=== PATIENT | male | born 1950 | race Caucasian/White ===

== ENCOUNTER 2021-05-18 16:26 | Inpatient (IN) | payer OTHER ==
[~2021-05-18] VITALS: Ht 180.3 cm; Wt 121.0 kg
[2021-05-18 17:43] LABS: BASOPHILS ABSOLUTE AUTO 0.01 K/mm3 (0.00-0.23); BASOPHILS PERCENT AUTO 0 % (0-2); EOSINOPHILS ABSOLUTE AUTO 0.01 K/mm3 (0.00-0.68); EOSINOPHILS PERCENT AUTO 0 % (0-6); Hematocrit 45.7 % (37.0-53.0); Hemoglobin 16.2 g/dL (13.5-17.5); IMMATURE GRAN ABSOLUTE AUTO 0.06 K/mm3 (0.00-0.10); IMMATURE GRAN PERCENT AUTO 1 % (0-1); LYMPHOCYTES ABSOLUTE AUTO 1.06 K/mm3 (0.84-5.20); LYMPHOCYTES PERCENT AUTO 8 % (21-46); MONOCYTES ABSOLUTE AUTO 0.87 K/mm3 (0.16-1.47); MONOCYTES PERCENT AUTO 7 % (4-13); Mean Corpuscular HGB 29.6 pg (26.0-34.0); Mean Corpuscular HGB Conc 35.4 g/dL (31.5-36.5); Mean Corpuscular Volume 84 fL (80-100); Mean Platelet Volume 10.7 fL (9.1-12.4); NEUTROPHILS ABSOLUTE AUTO 10.64 K/mm3 (1.96-9.15); NEUTROPHILS PERCENT AUTO 84 % (41-73); Platelet Count 265 K/mm3 (150-400); RDW Coefficient Variation 13.2 % (11.7-14.2); RDW Standard Deviation 40.8 fL (35.1-46.3); Red Blood Cell Count 5.47 M/mm3 (4.30-5.90); White Blood Cell Count 12.65 K/mm3 (4.00-11.30)
[2021-05-18 18:07] LABS: Alanine Aminotransfer (ALT/SGP 29 U/L (12-78); Albumin, Blood 3.1 g/dL (3.4-5.0); Albumin/Globulin Ratio 0.8 (0.8-1.8); Alk Phos 66 U/L (50-136); Anion Gap 10 mmol/L (6-16); Aspartate Aminotrans (AST/SGOT 24 U/L (12-37); Blood Urea Nitrogen 36 mg/dL (8-24); Bun/Creatinine Ratio 44.8 (12.0-20.0); CO2, Blood 25 mmol/L (21-32); Calcium, Blood 8.6 mg/dL (8.5-10.1); Chloride, Blood 104 mmol/L (98-108); Globulin, Blood 3.9 g/dL (2.2-4.0); Glomerular Filtration Rate >60 (60-); Glucose, Blood 203 mg/dL (70-99); Magnesium, Blood 2.1 mg/dL (1.6-2.4); Potassium, Blood 3.4 mmol/L (3.5-5.5); Sodium, Blood 139 mmol/L (136-145); Troponin I 0.019 ng/mL (0.000-0.040)
[2021-05-18] MEDS ORDERED: FINA5 PO (18:34)
[2021-05-18] MEDS ORDERED: OMEP20ER PO (18:34)
[2021-05-18] MEDS ORDERED: Aspir 8181 MG PO (18:34)
[2021-05-18] MEDS ORDERED: GABA800 PO (18:35)
[2021-05-18] MEDS ORDERED: METO25 PO (18:35)
[2021-05-18] MEDS ORDERED: GLIP10 PO (18:36)
[2021-05-18] MEDS ORDERED: Lisinopril2.5 MG PO (18:36)
[2021-05-18] MEDS ORDERED: TERA5 PO (18:37)
[2021-05-18] MEDS ORDERED: ATOR40TA PO (18:37)
[2021-05-18] MEDS ORDERED: HUMULIN N100 UNIT/6 SC (18:39)
[2021-05-18 23:42] LABS: Source, Urine Catheter
[2021-05-18 23:51] LABS: Bilirubin, Urine Neg (Neg); Blood, Urine 1+ (Neg); Glucose Qualitative, Urine 4+ (Neg); Ketones, Urine 2+ (Neg); Leukocyte Esterase, Urine Neg (Neg); Nitrite, Urine Neg (Neg); Protein, Urine 2+ (Neg); Specific Gravity, Urine 1.015 (1.003-1.022); Urobilinogen, Urine 2+ (Normal)
[2021-05-18 23:59] LABS: Appearance, Urine Clear (Clear); Color, Urine Yellow (P-Yellow)
[2021-05-19] LABS: Bacteria Not Seen /hpf; Mucus Light (0-Heavy); Red Blood Cells, Urine 0-2 /hpf (0-2); Squamous Epithelial Cells Not Seen /hpf (Few); White Blood Cells, Urine Not Seen /hpf (0-5)
--- NOTE | 2021-05-19 03:02 | NUR ---
SHIFT SUMMARY PT ER ADMIT THIS SHIFT FOR AFIB W RVR, PNA AND CVA. PT CVA WAS APPROX BETWEEN 1-7 DAYS AGO PER MD NOTE AND PT RECEIVED NO MEDICAL INTERVENTION DURING THAT TIME. PT SPEAK IIS CLEAR, NO OBVIOUS MOTOR DEFICITS WITH ASSESSMENT GRASPS ARE STRONG. HOWEVER PT IS VERY CONFUSED, AND HAS SOME GENERALIZED WEAKNESS. PT AFIB ON TELE, RATE IS NOW CONTROLLED IN THE 90'S AFTER RECEVING DIALTIAZEM IN THE ER. PT POTASSIUM IS BEING REPLACED AT THIS TIME. PT SLIGHLY LOW AT 3.4. PT NPO AT THIS TIME PENDING SPEECH EVAL. VITALS ARE STABLE. PT INCONTINENT OF URINE. SKIN IS C/D/I. PLAN IS FOR NEURO CONSULT, ECHO AND SPEECH EVAL. PT PLESANT WITH CARE. ADMISSION COMPLETE. BED IN LOWEST POSITION, CALL LIGHT WITHIN REACH.
[2021-05-19 04:51] LABS: BASOPHILS ABSOLUTE AUTO 0.01 K/mm3 (0.00-0.23); BASOPHILS PERCENT AUTO 0 % (0-2); EOSINOPHILS ABSOLUTE AUTO 0.07 K/mm3 (0.00-0.68); EOSINOPHILS PERCENT AUTO 1 % (0-6); Hematocrit 43.3 % (37.0-53.0); IMMATURE GRAN ABSOLUTE AUTO 0.03 K/mm3 (0.00-0.10); IMMATURE GRAN PERCENT AUTO 0 % (0-1); LYMPHOCYTES ABSOLUTE AUTO 1.25 K/mm3 (0.84-5.20); LYMPHOCYTES PERCENT AUTO 12 % (21-46); MONOCYTES ABSOLUTE AUTO 0.85 K/mm3 (0.16-1.47); MONOCYTES PERCENT AUTO 8 % (4-13); Mean Corpuscular HGB 29.4 pg (26.0-34.0); Mean Corpuscular HGB Conc 34.6 g/dL (31.5-36.5); Mean Corpuscular Volume 85 fL (80-100); NEUTROPHILS ABSOLUTE AUTO 8.21 K/mm3 (1.96-9.15); NEUTROPHILS PERCENT AUTO 79 % (41-73); Platelet Count 239 K/mm3 (150-400); RDW Coefficient Variation 13.2 % (11.7-14.2); RDW Standard Deviation 41.3 fL (35.1-46.3); White Blood Cell Count 10.42 K/mm3 (4.00-11.30)
[2021-05-19 05:22] LABS: Alanine Aminotransfer (ALT/SGP 28 U/L (12-78); Albumin, Blood 2.8 g/dL (3.4-5.0); Albumin/Globulin Ratio 0.8 (0.8-1.8); Alk Phos 60 U/L (50-136); Anion Gap 6 mmol/L (6-16); Aspartate Aminotrans (AST/SGOT 20 U/L (12-37); Bilirubin, Total 0.9 mg/dL (0.1-1.0); Blood Urea Nitrogen 30 mg/dL (8-24); Bun/Creatinine Ratio 40.9 (12.0-20.0); CO2, Blood 28 mmol/L (21-32); Calcium, Blood 8.1 mg/dL (8.5-10.1); Chloride, Blood 108 mmol/L (98-108); Creatinine, Blood 0.73 mg/dL (0.60-1.20); Globulin, Blood 3.6 g/dL (2.2-4.0); Glomerular Filtration Rate >60 (60-); Glucose, Blood 106 mg/dL (70-99); Potassium, Blood 3.6 mmol/L (3.5-5.5); Sodium, Blood 142 mmol/L (136-145); Total Protein, Blood 6.4 g/dL (6.4-8.2)
--- NOTE | 2021-05-19 09:45 | NUR ---
SPOKE WITH DR SMALLS AT 0900. VERBAL ORDER TO HOLD BOTH PLAVIX AND LOVENOX THIS AM UNTIL NEURO HAS BEEN CONSULTED.
--- NOTE | 2021-05-19 15:45 | NUR ---
SEIZURE PT STAFF MEMBER ENTERED PATIENT'S ROOM TO GET READY FOR TRANSPORT TO MEDICAL FLOOR. PATIENT EXPERIENCED A SEIZURE LASTING ABOUT 45 SECONDS. VSS, PATIENT ABLE TO SLOWLY ANSWER QUESTIONS. HE WAS IN BED DURING SEIZURE. NOTIFIED DR. EASTMAN AND DR SMALLS. HEAD CT W/O CONTRAST ORDERED STAT. ALSO 1-2 MG ATIVAN PRN FOR PROCEDURE AND SEIZURE PRECAUTIONS. WAITING FOR IMAGING TRANSPORT AT THIS TIME.
--- NOTE | 2021-05-19 16:11 | NUR ---
2ND SEIZURE PATIENT EXPERIENCED 2ND SEIZURE LASTING ABOUT 20 SECONDS IN BED PRIOR TO LEAVING FOR HEAD CT. WAS ALERT AND ABLE TO SLOWLY ANSWER QUESTIONS AFTER SEIZURE ENDED. OBTAINED ORDER FOR SEIZURE PRECAUTIONS AND IV ATIVAN. WILL ADMIN ATIVAN UPON RETURN FROM IMAGING.
--- NOTE | 2021-05-19 18:46 | NUR ---
SHIFT SUMMARY PATIENT SOMETIMES FORGETFUL, CONFUSED, AND LETHARGIC THROUGHOUT SHIFT. LEFT SIDED WEAKNESS. 2 PERSON ASSIST TO CHAIR. NPO PER SPEECH THERAPY. 2 SEIZURES IN AFTERNOON. NEURO CONSULTED AND ASSESSING PATIENT AT END OF SHIFT. REPEAT HEAD CT SHOWED NO CHANGES SINCE YESTERDAY 05/18/21. STARTED ON IV ATIVAN AND KEPPRA. RETAINING URINE, ZEPEDA PLACED AT END OF SHIFT. BED ALARM ON.
[2021-05-19 18:48] LABS: Source, Urine Clean Catch
[2021-05-19 18:51] LABS: Bilirubin, Urine Neg (Neg); Blood, Urine 2+ (Neg); Color, Urine Yellow (P-Yellow); Glucose Qualitative, Urine 4+ (Neg); Ketones, Urine 2+ (Neg); Leukocyte Esterase, Urine Neg (Neg); Nitrite, Urine Neg (Neg); Protein, Urine 2+ (Neg); Urobilinogen, Urine 2+ (Normal)
[2021-05-19 19:07] LABS: Appearance, Urine Clear (Clear); Bacteria Few /hpf; Squamous Epithelial Cells Not Seen /hpf (Few); White Blood Cells, Urine 0-2 /hpf (0-5)
--- NOTE | 2021-05-19 19:18 | NUR ---
I SPOKE TO DR. OVALLE - CLARIFIED MOST RECENT KEPPRA DOSE AND TIME GIVEN, AND KEPPRA DOSE SCHEDULED FOR TONIGHT AT 2100, RECEIVED VERBAL ORDER TO GIVE THE EVENING KEPPRA DOSE SCHEDULED.
--- NOTE | 2021-05-19 19:20 | NUR ---
MARIA D SIZE 2-3MM, LEFT SIDED WEAKNESS, LEFT HAND STRENGTH MINIMAL DECREASE IN STRENGTH THAN THE RIGHT, AND BLE - LLE WITH MINIMAL DECREASE IN STRENGTH FROM THE RLE.
--- NOTE | 2021-05-19 19:20 | NUR ---
PT IS FIDGETY, DOESN'T ANSWER ANY QUESTIONS ASKED. PT HAS CONFUSED CONVERSATION. PT DOES FOLLOW SOME INSTRUCTIONS GIVEN. PT SITTING IN HIGH SEMI FOWLERS POSITION IN BED, TURNED TELEVISION ON TO ATTEMPT TO DISTRACT THE PAIT. IV TO RFA IN PLACE, INFUSING NS AT 125 HOUR WITHOUT COMPLICATIONS. PAS ON TO BLE. PT IS NPO. ZAID PAUL SITTING OUTSIDE OF ROOM.
--- NOTE | 2021-05-19 23:35 | NUR ---
UPON ENTERING THE ROOM FOR THE CBG CHECK - PT STATES ARE "YOU READY FOR THE CONSTITUTION PARTY." PT IS ALERT TO PERSON, AND HIS BIRTHDATE AT THIS TIME. PT ASKED FOR THE RESULT OF THE CBG ALSO - PROVIDED. PT ALSO REPORTED ARE "YOU GOING TO TAKE MY BLOOD AGAIN." AT CHANGE OF SHIFT, PT WASN'T A&O - SEE PREVIOUS NOTE.
--- NOTE | 2021-05-19 23:39 | NUR ---
PRIOR TO TAKING PT'S CBG - PT STATES ARE "YOU HEAR TO TAKE MY BLOOD AGAIN." PT ABLE TO STATE HIS NAME AND BIRTHDAY, AND ASKED FOR THE RESULTS OF THE CBG - PROVIDED. PT ALSO ASKED "ARE YOU READY FOR THE GREEN PARTY" UPON ENTERING ROOM. PT WASN'T A&O AT CHANGE OF SHIFT - SEE NN FROM BEGINNING OF THIS SHIFT.
--- NOTE | 2021-05-19 23:54 | NUR ---
NEURO CHECKS REMAIN THE SAME, MINIMAL DECREASED STRENGTH ON THE LEFT LE/UE, MARIA D.
--- NOTE | 2021-05-20 03:32 | NUR ---
MARIA D - 2-3MM, NO CHANGE TO LEFT UE & LLE - MINIMAL DECREASE IN STRENGTH FROM RIGHT UE/LE.
[2021-05-20 03:54] LABS: BASOPHILS ABSOLUTE AUTO 0.02 K/mm3 (0.00-0.23); BASOPHILS PERCENT AUTO 0 % (0-2); EOSINOPHILS ABSOLUTE AUTO 0.27 K/mm3 (0.00-0.68); EOSINOPHILS PERCENT AUTO 2 % (0-6); Hemoglobin 14.9 g/dL (13.5-17.5); IMMATURE GRAN ABSOLUTE AUTO 0.04 K/mm3 (0.00-0.10); IMMATURE GRAN PERCENT AUTO 0 % (0-1); LYMPHOCYTES ABSOLUTE AUTO 1.21 K/mm3 (0.84-5.20); LYMPHOCYTES PERCENT AUTO 10 % (21-46); MONOCYTES ABSOLUTE AUTO 0.85 K/mm3 (0.16-1.47); MONOCYTES PERCENT AUTO 7 % (4-13); Mean Corpuscular HGB 30.3 pg (26.0-34.0); Mean Corpuscular HGB Conc 34.7 g/dL (31.5-36.5); Mean Corpuscular Volume 87 fL (80-100); Mean Platelet Volume 9.9 fL (9.1-12.4); NEUTROPHILS ABSOLUTE AUTO 10.01 K/mm3 (1.96-9.15); NEUTROPHILS PERCENT AUTO 81 % (41-73); Platelet Count 241 K/mm3 (150-400); RDW Coefficient Variation 13.5 % (11.7-14.2); RDW Standard Deviation 42.8 fL (35.1-46.3); Red Blood Cell Count 4.92 M/mm3 (4.30-5.90)
[2021-05-20 04:12] LABS: Alanine Aminotransfer (ALT/SGP 29 U/L (12-78); Albumin, Blood 2.9 g/dL (3.4-5.0); Albumin/Globulin Ratio 0.8 (0.8-1.8); Alk Phos 62 U/L (50-136); Anion Gap 11 mmol/L (6-16); Aspartate Aminotrans (AST/SGOT 18 U/L (12-37); Bilirubin, Total 1.2 mg/dL (0.1-1.0); Blood Urea Nitrogen 22 mg/dL (8-24); Bun/Creatinine Ratio 28.4 (12.0-20.0); CO2, Blood 22 mmol/L (21-32); Calcium, Blood 8.2 mg/dL (8.5-10.1); Chloride, Blood 109 mmol/L (98-108); Creatinine, Blood 0.78 mg/dL (0.60-1.20); Globulin, Blood 3.6 g/dL (2.2-4.0); Glomerular Filtration Rate >60 (60-); Glucose, Blood 184 mg/dL (70-99); Potassium, Blood 3.3 mmol/L (3.5-5.5); Sodium, Blood 142 mmol/L (136-145); Total Protein, Blood 6.5 g/dL (6.4-8.2)
--- NOTE | 2021-05-20 05:58 | NUR ---
SHIFT SUMMARY - PT IS MORE CONFUSED AGAIN THIS MORNING. PT HAS BEEN FOCUSING ON FISHING OFF/ON THROUGHOUT THE NIGHT. PT ISN'T ALERT TO SELF/BIRTHDATE THIS AM. PT IS ABLE TO FOLLOW SOME DIRECTIONS THIS AM. NO CHANGE TO NEURO CHECKS THROUGHOUT THE NIGHT. STAFF HAVE BEEN SITTING OUTSIDE OF PT'S ROOM THROUGHOUT MOST OF THE NOC. CALL LIGHT WITHIN REACH. BED ALARM ON. BED IN LOW POSITION. SEIZURE PADS IN PLACE.
[2021-05-20 08:20] LABS: CHOL/HDL RATIO 3.8; Cholesterol 123 mg/dL (50-200); HDL Cholesterol 32 mg/dL (>39); LDL/HDL RATIO 2.1; Low Density Lipoprotein Chol 67 mg/dL (0-110); Triglycerides 121 mg/dL (30-160); Very Low Density Lipoprot Chol 24 mg/dL (6-32)
--- NOTE | 2021-05-20 10:27 | NUR ---
Pt is alert, oriented to person, hospital (at first he thought it was the [place] hospital, but after correction he remembered an hour later that he is at [facility]), and also knows that he had a stroke. He is able to carry on conversation, still has left sided droop and left pupil is sluggish to react to light. He follows directions poorly, becomes agitated easily and has little to no insight into his limitations and has poor reasoning. Left sided neglect, impaired depth perception, and left sided weakness noted. [facility] done this am, seen also by resident and hospitalist. Pt is sitting up in chair, eating ice cream. STated that he neeed to use the bathroom. Was able to bear weight and use walker with assistance to stand and sit on the commode. He was confused about it being a toilet, and became agitated when we tried to direct him to use it. He did have a BM. Attempting to pull of off his IV, and attempts to distract and redirect were unsuccessful. Bilateral soft wrist restraints applied to prevent dislodgement of his IV by the pt due to his confusion and inability to be redirected.
--- NOTE | 2021-05-20 11:19 | NUR ---
The pt will be transferred to room 219. Report was called to Kacy Wagner at this time.
--- NOTE | 2021-05-20 18:10 | NUR ---
TRANSFER: REPORT RECEIVED FROM RESERVATIONS AGENTMARINA. PT TO UNIT AT ABOUT 1130. UPON ASSESSMENT PT IS SITTING UP IN RECLINER, ALERT. ORIENTED TO SELF AND TIME ONLY. DIFFICULT FOR PT TO FOLLOW COMMANDS AND DOESN'T ALWAYS RESPOND APPROPRIATLY. BILAT SOFT WRIST RESTRAINTS ON AND RESTRAINT ASSESSMENT COMPLETED. AIR GAURD OFFICER IN ROOM TO MAINTAIN PT SAFETY, CHAIR ALARM ON. WILL CTM.
--- NOTE | 2021-05-20 18:16 | NUR ---
SUMMARY: NO ACUTE CHANGE TODAY. VSS, TELE AFIB, HR 103. ZEPEDA PATENT AND DRAINING. PT HAS HAD X3 SMALL LIQ BM'S TODAY. ATTENDS CHANGED PRN. PT WORKED WITH THERAPY, BUT WAS NOT ABLE TO AMBULATE. PT HAS DIFFICULTLY FOLLOWING COMMANDS. NEEDED 3 ASSIST WITH GAIT BELT AND WALKER TO TRANSFER TO BED. PT SAT UP FOR MEALS AND HAD ASSISTANCE. MINIMAL PO INTAKE, MEDS CRUSHED IN APPLESAUCE. PT CONTINUES TO BE CONFUSED, ORIENTED TO SELF AND TIME ONLY. BED ALARM SET AND FREQUENT ROUNDING. PT GIVEN AN UPDATE. WILL CTM AND REPORT TO NOC RN.
--- NOTE | 2021-05-20 21:30 | NUR ---
PT TOOK KEPPRA ORDERED, THEN REFUSED ALL OTHER HS MEDS. ATTEMPTED TO GIVE MEDS CRUSHED IN APPLESAUCE, PT BEGAN TO SPIT MEDS OUT. ATTEMPTED TO REDIRECT PT, BUT PT CONT TO SPIT OUT ALL PO OFFERINGS.
[2021-05-21 04:48] LABS: BASOPHILS ABSOLUTE AUTO 0.02 K/mm3 (0.00-0.23); BASOPHILS PERCENT AUTO 0 % (0-2); EOSINOPHILS ABSOLUTE AUTO 0.46 K/mm3 (0.00-0.68); EOSINOPHILS PERCENT AUTO 4 % (0-6); IMMATURE GRAN ABSOLUTE AUTO 0.04 K/mm3 (0.00-0.10); IMMATURE GRAN PERCENT AUTO 0 % (0-1); LYMPHOCYTES ABSOLUTE AUTO 0.89 K/mm3 (0.84-5.20); LYMPHOCYTES PERCENT AUTO 8 % (21-46); MONOCYTES ABSOLUTE AUTO 0.71 K/mm3 (0.16-1.47); MONOCYTES PERCENT AUTO 6 % (4-13); Mean Corpuscular HGB 29.5 pg (26.0-34.0); Mean Corpuscular HGB Conc 34.2 g/dL (31.5-36.5); Mean Corpuscular Volume 86 fL (80-100); NEUTROPHILS ABSOLUTE AUTO 9.79 K/mm3 (1.96-9.15); NEUTROPHILS PERCENT AUTO 82 % (41-73); Platelet Count 218 K/mm3 (150-400); RDW Coefficient Variation 13.6 % (11.7-14.2); RDW Standard Deviation 42.6 fL (35.1-46.3); White Blood Cell Count 11.91 K/mm3 (4.00-11.30)
--- NOTE | 2021-05-21 05:03 | NUR ---
PT VSS T/O NIGHT. PT ALERT, REMAINS CONFUSED, ORIENTED TO SELF ONLY. PT NEEDING FREQ REORIENTING, DOES BECOME AGITATED AT TIMES. PT ASSISTED W/THICKENED PO FLUIDS, WILL ASK FOR SNACKS AND DRINKS BUT ONLY TAKES IN MINIMAL AMTS. ZEPEDA PATANT DRNG DARK YELLOW URINE. SOFT WRIST RESTRAINTS IN PLACE. PT REPOSITIONED GENARO DURING NIGHT, HE DOES SHIFT SELF IN BED OFTEN, BUT NEEDS HELP MOVING LLE. GUARDSMEN IN ROOM FOR SUPPORT AND DISTRACTION, PT APPEARS TO RESPOND WELL. BED ALARM IN PLACE.
[2021-05-21 05:09] LABS: Alanine Aminotransfer (ALT/SGP 28 U/L (12-78); Albumin/Globulin Ratio 0.9 (0.8-1.8); Alk Phos 63 U/L (50-136); Anion Gap 12 mmol/L (6-16); Aspartate Aminotrans (AST/SGOT 16 U/L (12-37); Blood Urea Nitrogen 18 mg/dL (8-24); Bun/Creatinine Ratio 24.7 (12.0-20.0); CO2, Blood 22 mmol/L (21-32); Calcium, Blood 8.3 mg/dL (8.5-10.1); Chloride, Blood 110 mmol/L (98-108); Creatinine, Blood 0.73 mg/dL (0.60-1.20); Globulin, Blood 3.4 g/dL (2.2-4.0); Glomerular Filtration Rate >60 (60-); Glucose, Blood 213 mg/dL (70-99); Potassium, Blood 3.5 mmol/L (3.5-5.5); Sodium, Blood 144 mmol/L (136-145); Total Protein, Blood 6.4 g/dL (6.4-8.2)
--- NOTE | 2021-05-21 18:12 | NUR ---
SUMMARY: PT SEEMS MORE CONFUSED TONIGHT, AND HAS BEEN SEEING BUGS AND DEER IN HIS ROOM, PT ALSO HAVING CONVERSATIONS WITH PEOPLE THAT ARENT IN THE ROOM. PT HAS HAS MINIMAL PO INTAKE, REFUSING SOME MEDICATION AND TAKING ONLY BITES OF MEALS. DR. CORRIGAN NOTIFIED. SEE NEW ORDERS. NEW IV STARTED TONIGHT. CONTINUED WRIST RESTRAITS, PT ORIENTED TO SELF ONLY AND CONSTANTING ATTEMPTING TO PULL AT LINES. WILL REPORT TO NOC RN.
[2021-05-21 21:53] LABS: Source, Urine Catheter
[2021-05-21 22:04] LABS: Bilirubin, Urine Neg (Neg); Blood, Urine 5+ (Neg); Glucose Qualitative, Urine 4+ (Neg); Ketones, Urine 4+ (Neg); Leukocyte Esterase, Urine Neg (Neg); Nitrite, Urine Neg (Neg); Protein, Urine 2+ (Neg); Specific Gravity, Urine 1.025 (1.003-1.022); Urobilinogen, Urine NORM (Normal)
[2021-05-21 22:08] LABS: Appearance, Urine Clear (Clear); Color, Urine Yellow (P-Yellow)
[2021-05-21 22:11] LABS: Bacteria Mod /hpf; Red Blood Cells, Urine 50-100 /hpf (0-2); Squamous Epithelial Cells Not Seen /hpf (Few); White Blood Cells, Urine 0-2 /hpf (0-5); Yeast/Fungi Urine Mod /hpf
--- NOTE | 2021-05-22 04:30 | NUR ---
HR: HR DROPPED TO 48 PER TELE MONITOR. PT SLEEPING, AWOKE EASILY. HR RETURNED BACK UP TO HIGH 60'S WHEN PT AWAKE.
--- NOTE | 2021-05-22 06:24 | NUR ---
PT REMAINS CONFUSED AND DIFFICULT TO REDIRECT. PT CONT TO PULL ON RESTRAINTS, AND PULLS ON LINES WHEN RESTRAINTS REMOVED FOR ROM AND REPOSITIONING. HR TRENDING 50'S WHILE SLEEPING, DID DROP TO 48 BRIEFLY WHEN SLEEPING. PT ASSISTED W/THICKENED PO FLUIDS, GENARO WELL.
[2021-05-22 08:19] LABS: BASOPHILS ABSOLUTE AUTO 0.02 K/mm3 (0.00-0.23); BASOPHILS PERCENT AUTO 0 % (0-2); EOSINOPHILS ABSOLUTE AUTO 0.56 K/mm3 (0.00-0.68); EOSINOPHILS PERCENT AUTO 6 % (0-6); IMMATURE GRAN ABSOLUTE AUTO 0.03 K/mm3 (0.00-0.10); IMMATURE GRAN PERCENT AUTO 0 % (0-1); LYMPHOCYTES ABSOLUTE AUTO 1.26 K/mm3 (0.84-5.20); LYMPHOCYTES PERCENT AUTO 14 % (21-46); MONOCYTES ABSOLUTE AUTO 0.63 K/mm3 (0.16-1.47); MONOCYTES PERCENT AUTO 7 % (4-13); Mean Corpuscular HGB 29.9 pg (26.0-34.0); Mean Corpuscular HGB Conc 34.3 g/dL (31.5-36.5); Mean Corpuscular Volume 87 fL (80-100); Mean Platelet Volume 10.3 fL (9.1-12.4); NEUTROPHILS ABSOLUTE AUTO 6.85 K/mm3 (1.96-9.15); NEUTROPHILS PERCENT AUTO 73 % (41-73); Platelet Count 193 K/mm3 (150-400); RDW Coefficient Variation 13.7 % (11.7-14.2); RDW Standard Deviation 43.8 fL (35.1-46.3); Red Blood Cell Count 4.01 M/mm3 (4.30-5.90); White Blood Cell Count 9.35 K/mm3 (4.00-11.30)
[2021-05-22 08:42] LABS: Alanine Aminotransfer (ALT/SGP 26 U/L (12-78); Albumin, Blood 2.8 g/dL (3.4-5.0); Albumin/Globulin Ratio 0.9 (0.8-1.8); Alk Phos 56 U/L (50-136); Anion Gap 8 mmol/L (6-16); Aspartate Aminotrans (AST/SGOT 19 U/L (12-37); Bilirubin, Total 0.7 mg/dL (0.1-1.0); Blood Urea Nitrogen 16 mg/dL (8-24); Bun/Creatinine Ratio 21.4 (12.0-20.0); CO2, Blood 23 mmol/L (21-32); Chloride, Blood 114 mmol/L (98-108); Creatinine, Blood 0.75 mg/dL (0.60-1.20); Globulin, Blood 3.1 g/dL (2.2-4.0); Glomerular Filtration Rate >60 (60-); Glucose, Blood 187 mg/dL (70-99); Potassium, Blood 3.9 mmol/L (3.5-5.5); Sodium, Blood 145 mmol/L (136-145); Total Protein, Blood 5.9 g/dL (6.4-8.2)
--- NOTE | 2021-05-22 17:36 | NUR ---
SHIFT SUMMARY PT HAS BEEN CONFUSED T/O DAY BUT DID HAVE SOME TIMES OF CLARITY & OVERALL IMPROVEMENT. THIS AM THOUGHT HE WAS IN A ORTHODOX & THIS AFTERNOON HAS RECOGNIZED HE IS IN A HOSPITAL. HAS BEEN UP IN CHAIR & AMBULATED TWICE TO BATHROOM.
--- NOTE | 2021-05-22 18:20 | NUR ---
AFIB PER RISK MANAGER, PT IS NOW IN A-FIB. AFTER REVIEWING THIER MONITORS, UNABLE TO SAY WHEN PT CONVERTED DURING DAY SHIFT.
--- NOTE | 2021-05-23 04:03 | NUR ---
SHIFT SUMMARY NO ACUTE CHANGES THIS SHIFT. NEURO STATUS REMAINS UNCHANGED. PT ORIENTED TO SELF AND FOLLOWING COMMANDS. INTERMITTENTLY CONFUSED. CONTINUES TO HAVE SLURRED SPEECH. HAS RESTED WELL T/O NIGHT. ZEPEDA INTACT. TELE IN PLACE AND REMAINS IN AFIB WITH SOME TACHYCARDIA NOTED AT TIMES. BED ALARM IN PLACE FOR SAFETY. CALL LIGHT WITHIN REACH.
[2021-05-23 05:04] LABS: BASOPHILS ABSOLUTE AUTO 0.02 K/mm3 (0.00-0.23); BASOPHILS PERCENT AUTO 0 % (0-2); EOSINOPHILS ABSOLUTE AUTO 0.41 K/mm3 (0.00-0.68); EOSINOPHILS PERCENT AUTO 5 % (0-6); Hematocrit 37.6 % (37.0-53.0); Hemoglobin 13.1 g/dL (13.5-17.5); IMMATURE GRAN ABSOLUTE AUTO 0.03 K/mm3 (0.00-0.10); IMMATURE GRAN PERCENT AUTO 0 % (0-1); LYMPHOCYTES ABSOLUTE AUTO 1.06 K/mm3 (0.84-5.20); LYMPHOCYTES PERCENT AUTO 13 % (21-46); MONOCYTES ABSOLUTE AUTO 0.55 K/mm3 (0.16-1.47); MONOCYTES PERCENT AUTO 7 % (4-13); Mean Corpuscular HGB 29.5 pg (26.0-34.0); Mean Corpuscular HGB Conc 34.8 g/dL (31.5-36.5); Mean Corpuscular Volume 85 fL (80-100); Mean Platelet Volume 10.3 fL (9.1-12.4); NEUTROPHILS ABSOLUTE AUTO 5.84 K/mm3 (1.96-9.15); NEUTROPHILS PERCENT AUTO 74 % (41-73); Platelet Count 210 K/mm3 (150-400); RDW Coefficient Variation 13.4 % (11.7-14.2); RDW Standard Deviation 41.9 fL (35.1-46.3); Red Blood Cell Count 4.44 M/mm3 (4.30-5.90); White Blood Cell Count 7.91 K/mm3 (4.00-11.30)
[2021-05-23 05:39] LABS: Alanine Aminotransfer (ALT/SGP 27 U/L (12-78); Albumin, Blood 2.7 g/dL (3.4-5.0); Albumin/Globulin Ratio 0.8 (0.8-1.8); Alk Phos 62 U/L (50-136); Anion Gap 10 mmol/L (6-16); Aspartate Aminotrans (AST/SGOT 15 U/L (12-37); Bilirubin, Total 0.6 mg/dL (0.1-1.0); Blood Urea Nitrogen 13 mg/dL (8-24); Bun/Creatinine Ratio 18.5 (12.0-20.0); CO2, Blood 23 mmol/L (21-32); Calcium, Blood 8.3 mg/dL (8.5-10.1); Chloride, Blood 108 mmol/L (98-108); Globulin, Blood 3.4 g/dL (2.2-4.0); Glomerular Filtration Rate >60 (60-); Glucose, Blood 204 mg/dL (70-99); Potassium, Blood 3.2 mmol/L (3.5-5.5); Sodium, Blood 141 mmol/L (136-145); Total Protein, Blood 6.1 g/dL (6.4-8.2)
--- NOTE | 2021-05-23 14:00 | NUR ---
PT TO IMAGING VIA [facility] FOR SWALLOW STUDY
--- NOTE | 2021-05-23 18:27 | NUR ---
SHIFT SUMMARY PT HAS BEEN CONFUSED MOST OF SHIFT, BUT PLEASANT. ORIENTED TO SELF T/O SHIFT & PLACE ON/OFF. FOLLOWS COMMANDS @ X's, BUT OTHER TIMES STARES BLANKLY. UP TO CHAIR THIS EVENING. LESS INTERESTED IN PO INTAKE TODAY BUT TAKING SOME SIPS FROM SPOON.
--- NOTE | 2021-05-23 20:26 | NUR ---
UPDATED PT'S ON TREATMENT PLAN.
--- NOTE | 2021-05-24 04:14 | NUR ---
SHIFT SUMMARY PT HAS RESTED WELL T/O NIGHT. NEURO STATUS REMAINS UNCHANGED. PT REMAINS PLEASANTLY CONFUSED, BUT COOPERATIVE. ENCOURAGING PO INTAKE PER SPEECH THERAPY RECOMMENDATIONS. ZEPEDA PATENT AND DRAINING. CHANGING ATTENDS PRN. CALL LIGHT WITHIN REACH. BED ALARM IN PLACE FOR SAFETY.
[2021-05-24 04:51] LABS: Anion Gap 7 mmol/L (6-16); Blood Urea Nitrogen 11 mg/dL (8-24); Bun/Creatinine Ratio 16.3 (12.0-20.0); CO2, Blood 26 mmol/L (21-32); Calcium, Blood 8.3 mg/dL (8.5-10.1); Chloride, Blood 109 mmol/L (98-108); Creatinine, Blood 0.67 mg/dL (0.60-1.20); Glomerular Filtration Rate >60 (60-); Glucose, Blood 218 mg/dL (70-99); Potassium, Blood 3.7 mmol/L (3.5-5.5); Sodium, Blood 142 mmol/L (136-145)
--- NOTE | 2021-05-24 16:52 | NUR ---
SHIFT SUMMARY PT HAS BEEN A&O X3 T/O SHIFT. PT HAS BEEN IN PLEASENT, PLAYFUL MOOD T/O SHIFT. PT WORKED W/ PT AND OT. PT TRANSFERED FROM BEDSIDE COMODE TO BED 1 PERSON STANDBY ASSIST W/ GAITBELT AND FWW. PT ABLE TO RECALL HOME PHONE NUMBER AND SPOKE W/ ON THE PHONE. CALLED AND WANTED D/C UPDATE, MESSAGE LEFT W/ ISRAEL OJEDA. CALL LIGHT IS W/IN REACH. VSS. BED ALARM ON.
--- NOTE | 2021-05-25 15:24 | NUR ---
Palliative care consult: Met with Guanaco briefly this afternoon. He was asleep but awakens easily to voice. He briefly opened his eyes but kept them closed for most of the time. He states he is feeling better. He has no complaints. Reviewed with him that the plan is for [facility]. He appears comfortable and in no distress at this time. Chart notes reviewed. CM recently spoke with his to update her on the plan for rehab. PC will continue to follow.
--- NOTE | 2021-05-25 17:18 | NUR ---
SUMMARY: PT ALERT, ORIENTED TO SELF, TIME, SOMETIMES SITUATION AND PLACE. PT MORE APPROPRIATE AND FOLLOWS DIRECTIONS. ABLE TO WORK WITH PT/OT, UP IN CHAIR FOR MEALS. ZEPEDA CATH DC'D AT 1630 AND ATTENDS PLACED, AWAITING VOID. BED ALARM ON FOR SAFETY, WILL CTM AND REPORT TO NOC RN.
--- NOTE | 2021-05-26 07:32 | NUR ---
SUMMARY PT WITH RETENTION AFTER CATH REMOVED YESTERDAY AND I/O CATH WAS PERFOMED. NO OTHER ACUTE CHANGES. PT CONT OCCASIONALLY INAPPROPRIATE TO SITUATION AND IMPULSIVE.TOSSES LEGS TO EDGE OF BED WHICH SET OFF BED ALARM AND PT DOES NOT CALL.
[2021-05-26 10:44] LABS: Anion Gap 6 mmol/L (6-16); Blood Urea Nitrogen 9 mg/dL (8-24); Bun/Creatinine Ratio 11.3 (12.0-20.0); CO2, Blood 30 mmol/L (21-32); Calcium, Blood 8.6 mg/dL (8.5-10.1); Chloride, Blood 102 mmol/L (98-108); Glomerular Filtration Rate >60 (60-); Glucose, Blood 390 mg/dL (70-99); Potassium, Blood 3.7 mmol/L (3.5-5.5); Sodium, Blood 138 mmol/L (136-145)
[2021-05-26 11:49] LABS: SARS-Cov-2 (COVID-19) PCR, MMC NEGATIVE (NEGATIVE)
--- NOTE | 2021-05-26 11:54 | NUR ---
CBG [address] SMALLS NOTIFIED. SEE NEW ORDERS. PLAN TO GIVE 10 UNITS INSULIN BEFORE LUNCH. WILL CTM.
--- NOTE | 2021-05-26 14:06 | NUR ---
DISCHARGE: TRANSPORT HERE FOR PT. LONA HADDAD, LOCOMOTIVE FIRER REPORTS [facility], NO NEED FOR PACKET UPON DC. IV DC'D WNL. PT LEFT UNIT VIA WHEELCHAIR WITH TRANSPORT AT ABOUT 1400 AND REPORT CALLED TO OLIVIA CERVANTES AT [facility] AT ABOUT 1410.
--- NOTE | 2021-05-26 14:36 | NUR ---
PT GIVEN UPDATE ON STATUS AND TRANSFER
== END 2021-05-26 14:45 | disposition short-term general hospital (02) | DRG 64 ==
LOC: ER 16:26 → ERHOLD 20:50 → PCU 20:50 → SURS 20:50 → PCU 23:45 → MEDS 05-19 15:33 → PCU 05-19 15:41 → SURS 05-20 11:36
PROVIDERS: Family Medicine; Internal Medicine; Physician Assistant; ADMIT Hospitalist
DX: I63.89 Other cerebral infarction (principal); J69.0 Pneumonitis due to inhalation of food and vomit; G92 Toxic encephalopathy; G93.6 Cerebral edema; I48.20 Chronic atrial fibrillation, unspecified; G81.94 Hemiplegia, unspecified affecting left nondominant side; G40.409 Other generalized epilepsy and epileptic syndromes, not intractable, without status epilepticus; R29.810 Facial weakness; H53.462 Homonymous bilateral field defects, left side; Z66 Do not resuscitate; Z20.822 Contact with and (suspected) exposure to COVID-19; R47.1 Dysarthria and anarthria; E66.9 Obesity, unspecified; R47.81 Slurred speech; E87.6 Hypokalemia; E10.9 Type 1 diabetes mellitus without complications; N40.0 Benign prostatic hyperplasia without lower urinary tract symptoms; I10 Essential (primary) hypertension; K21.9 Gastro-esophageal reflux disease without esophagitis; Z79.01 Long term (current) use of anticoagulants; Z86.718 Personal history of other venous thrombosis and embolism; Z79.82 Long term (current) use of aspirin; Z79.899 Other long term (current) drug therapy; Z79.4 Long term (current) use of insulin; Z87.891 Personal history of nicotine dependence; Z78.1 Physical restraint status; Z68.35 Body mass index [BMI] 35.0-35.9, adult
CPT/HCPCS: 36415; 70450; 70470; 70496; 70498; 71045; 74230; 80048; 80053; 80061; 81001; 82947; 83036; 83605; 83690; 83735; 84443; 84484; 85025; 92526; 92610; 92611; 93005; 93010; 93306; 96365; 96367; 96375; 97110; 97112; 97116; 97162; 97166; 97530; 97535; 99285-25; A9270; J0456; J0696; J1953; J2060; J3480; J7030; J7050; J7120; Q9967; U0004

== ENCOUNTER 2021-07-05 19:07 | Inpatient (IN) | payer OTHER ==
[~2021-07-05] VITALS: Ht 180.3 cm; Wt 104.1 kg
[~2021-07-05 19:07] MED LIST: ATOR40TA PO; Aspir 8181 MG PO; FINA5 PO; GABA800 PO; GLIP10 PO; HUMULIN N100 UNIT/6 SC; Lisinopril2.5 MG PO; METO25 PO; OMEP20ER PO; TERA5 PO
[2021-07-05 20:16] LABS: BASOPHILS ABSOLUTE AUTO 0.01 K/mm3 (0.00-0.23); BASOPHILS PERCENT AUTO 0 % (0-2); EOSINOPHILS PERCENT AUTO 2 % (0-6); Hematocrit 42.2 % (37.0-53.0); Hemoglobin 14.7 g/dL (13.5-17.5); IMMATURE GRAN ABSOLUTE AUTO 0.02 K/mm3 (0.00-0.10); IMMATURE GRAN PERCENT AUTO 0 % (0-1); LYMPHOCYTES ABSOLUTE AUTO 0.78 K/mm3 (0.84-5.20); LYMPHOCYTES PERCENT AUTO 14 % (21-46); MONOCYTES ABSOLUTE AUTO 0.31 K/mm3 (0.16-1.47); MONOCYTES PERCENT AUTO 6 % (4-13); Mean Corpuscular HGB 30.4 pg (26.0-34.0); Mean Corpuscular HGB Conc 34.8 g/dL (31.5-36.5); Mean Corpuscular Volume 87 fL (80-100); Mean Platelet Volume 10.2 fL (9.1-12.4); NEUTROPHILS ABSOLUTE AUTO 4.22 K/mm3 (1.96-9.15); NEUTROPHILS PERCENT AUTO 78 % (41-73); Platelet Count 243 K/mm3 (150-400); RDW Coefficient Variation 15.7 % (11.7-14.2); RDW Standard Deviation 49.9 fL (35.1-46.3); Red Blood Cell Count 4.83 M/mm3 (4.30-5.90); White Blood Cell Count 5.44 K/mm3 (4.00-11.30)
[2021-07-05 20:29] LABS: Anion Gap 6 mmol/L (6-16); Blood Urea Nitrogen 10 mg/dL (8-24); Bun/Creatinine Ratio 13.1 (12.0-20.0); CO2, Blood 28 mmol/L (21-32); Calcium, Blood 9.4 mg/dL (8.5-10.1); Chloride, Blood 103 mmol/L (98-108); Creatinine, Blood 0.77 mg/dL (0.60-1.20); Glomerular Filtration Rate >60 (60-); Glucose, Blood 124 mg/dL (70-99); Potassium, Blood 4.2 mmol/L (3.5-5.5); Sodium, Blood 137 mmol/L (136-145)
[2021-07-05 21:58] LABS: International Normalized Ratio 1.09; Prothrombin Time Results 11.4 Sec (9.7-11.5)
[2021-07-06] MEDS ORDERED: ACETAMINOPHEN500 M2 PO (00:28)
[2021-07-06] MEDS ORDERED: ATORVASTATIN CA80 M1 PO (00:29)
[2021-07-06] MEDS ORDERED: GLUCOSE PO (00:30)
[2021-07-06] MEDS ORDERED: Cardura Xl8 MG PO (00:32)
[2021-07-06] MEDS ORDERED: JARDIANCE10 MG PO (00:33)
[2021-07-06] MEDS ORDERED: FURO20 PO (00:34)
[2021-07-06] MEDS ORDERED: GABA400 PO (00:35)
[2021-07-06] MEDS ORDERED: GLUCAGEN1 MG/1 M1 IM (00:36)
[2021-07-06] MEDS ORDERED: BASAGLAR K100 UNIT/3 SC (00:37)
[2021-07-06] MEDS ORDERED: Keppra PO (00:39)
[2021-07-06] MEDS ORDERED: LISI5 PO (00:40)
[2021-07-06] MEDS ORDERED: LORAZEPAM2 MG/1 M1 IV (00:41)
[2021-07-06] MEDS ORDERED: [UNRECOGNIZED DRUG - OTHER] PO (00:42)
[2021-07-06] MEDS ORDERED: OXAYDO5 M1 PO (00:44)
[2021-07-06] MEDS ORDERED: Miralax PO (00:45)
[2021-07-06] MEDS ORDERED: K-Dur20 MEQ PO (00:46)
[2021-07-06] MEDS ORDERED: SENN187 PO (00:47)
[2021-07-06] MEDS ORDERED: SERT25 PO (00:48)
[2021-07-06] MEDS ORDERED: Vitamin D PO (00:50)
[2021-07-06 01:59] LABS: SARS-Cov-2 (COVID-19) PCR, MMC NEGATIVE (NEGATIVE)
[2021-07-06 04:52] LABS: Hematocrit 41.9 % (37.0-53.0); Hemoglobin 14.2 g/dL (13.5-17.5); Mean Corpuscular HGB Conc 33.9 g/dL (31.5-36.5); Mean Corpuscular Volume 89 fL (80-100); Mean Platelet Volume 9.8 fL (9.1-12.4); Platelet Count 224 K/mm3 (150-400); RDW Coefficient Variation 15.8 % (11.7-14.2); RDW Standard Deviation 51.9 fL (35.1-46.3); Red Blood Cell Count 4.73 M/mm3 (4.30-5.90)
[2021-07-06 05:14] LABS: Anion Gap 10 mmol/L (6-16); Blood Urea Nitrogen 10 mg/dL (8-24); Bun/Creatinine Ratio 11.4 (12.0-20.0); CO2, Blood 27 mmol/L (21-32); Calcium, Blood 9.3 mg/dL (8.5-10.1); Chloride, Blood 103 mmol/L (98-108); Creatinine, Blood 0.88 mg/dL (0.60-1.20); Glomerular Filtration Rate >60 (60-); Glucose, Blood 107 mg/dL (70-99); Potassium, Blood 4.5 mmol/L (3.5-5.5); Sodium, Blood 140 mmol/L (136-145)
[2021-07-07 05:16] LABS: BASOPHILS PERCENT AUTO 0 % (0-2); EOSINOPHILS PERCENT AUTO 0 % (0-6); Hematocrit 38.8 % (37.0-53.0); Hemoglobin 12.9 g/dL (13.5-17.5); IMMATURE GRAN ABSOLUTE AUTO 0.02 K/mm3 (0.00-0.10); IMMATURE GRAN PERCENT AUTO 0 % (0-1); LYMPHOCYTES ABSOLUTE AUTO 0.43 K/mm3 (0.84-5.20); LYMPHOCYTES PERCENT AUTO 7 % (21-46); MONOCYTES ABSOLUTE AUTO 0.24 K/mm3 (0.16-1.47); MONOCYTES PERCENT AUTO 4 % (4-13); Mean Corpuscular HGB 29.8 pg (26.0-34.0); Mean Corpuscular HGB Conc 33.2 g/dL (31.5-36.5); Mean Corpuscular Volume 90 fL (80-100); Mean Platelet Volume 10.4 fL (9.1-12.4); NEUTROPHILS ABSOLUTE AUTO 5.65 K/mm3 (1.96-9.15); NEUTROPHILS PERCENT AUTO 89 % (41-73); Platelet Count 214 K/mm3 (150-400); Red Blood Cell Count 4.33 M/mm3 (4.30-5.90); White Blood Cell Count 6.34 K/mm3 (4.00-11.30)
[2021-07-07 05:40] LABS: Anion Gap 23 mmol/L (6-16); Blood Urea Nitrogen 19 mg/dL (8-24); Bun/Creatinine Ratio 17.8 (12.0-20.0); CO2, Blood 11 mmol/L (21-32); Calcium, Blood 8.4 mg/dL (8.5-10.1); Chloride, Blood 101 mmol/L (98-108); Creatinine, Blood 1.07 mg/dL (0.60-1.20); Glomerular Filtration Rate >60 (60-); Glucose, Blood 350 mg/dL (70-99); Magnesium, Blood 1.8 mg/dL (1.6-2.4); Potassium, Blood 5.1 mmol/L (3.5-5.5); Sodium, Blood 135 mmol/L (136-145)
[2021-07-07 12:20] LABS: PCO2 Arterial 28.1 mmHg (35-45); PO2 Arterial 82.9 mmHg (80-100); pH Blood Arterial 7.35 (7.35-7.45)
[2021-07-08 08:34] LABS: Anion Gap 10 mmol/L (6-16); Blood Urea Nitrogen 17 mg/dL (8-24); Bun/Creatinine Ratio 25.3 (12.0-20.0); CO2, Blood 23 mmol/L (21-32); Calcium, Blood 8.8 mg/dL (8.5-10.1); Chloride, Blood 106 mmol/L (98-108); Creatinine, Blood 0.67 mg/dL (0.60-1.20); Glomerular Filtration Rate >60 (60-); Glucose, Blood 161 mg/dL (70-99); Potassium, Blood 4.2 mmol/L (3.5-5.5); Sodium, Blood 139 mmol/L (136-145)
[2021-07-11 12:48] LABS: SARS-Cov-2 (COVID-19) PCR, MMC NEGATIVE (NEGATIVE)
== END 2021-07-11 15:04 | DRG 480 ==
LOC: ER 19:07 → SURS 21:56
PROVIDERS: Internal Medicine; Orthopaedic Surgery; Student in an Organized Health Care Education/Training Program; ADMIT Internal Medicine
PROC: 0QS634Z Reposition Right Upper Femur with Internal Fixation Device, Percutaneous Approach (ICD-10-PCS; principal; 2021-07-06 14:00)
DX: S72.001A Fracture of unspecified part of neck of right femur, initial encounter for closed fracture (principal); G92.8 Other toxic encephalopathy; I48.20 Chronic atrial fibrillation, unspecified; Z20.822 Contact with and (suspected) exposure to COVID-19; I10 Essential (primary) hypertension; E11.40 Type 2 diabetes mellitus with diabetic neuropathy, unspecified; F41.9 Anxiety disorder, unspecified; Z86.73 Personal history of transient ischemic attack (TIA), and cerebral infarction without residual deficits; Z86.718 Personal history of other venous thrombosis and embolism; Z98.890 Other specified postprocedural states; Z88.8 Allergy status to other drugs, medicaments and biological substances; Z79.82 Long term (current) use of aspirin; Z79.84 Long term (current) use of oral hypoglycemic drugs; Z79.899 Other long term (current) drug therapy; W18.39XA Other fall on same level, initial encounter
CPT/HCPCS: 36415; 36600; 51702; 73502; 80048; 82803; 82947; 83735; 85025; 85027; 85610; 85730; 86850; 86900; 86901; 94762; 96374; 97110; 97162; 97166; 97530; 97535; 99285-25; A9270; C1713; C1769; J0171; J0690; J1100; J1170; J1650; J1815; J1885; J2370; J2405; J2704; J3010; J3370; J7120; U0004